=== PATIENT | male | born 1990 | race African-American/Black ===

== ENCOUNTER 2018-03-22 08:41 | Emergency (ER) | payer MEDICAID ==
[~2018-03-22] VITALS: Ht 172.7 cm; Wt 106.6 kg
[2018-03-22 10:17] VITALS: BP 130/57
[2018-03-22] MEDS ORDERED: KETOROLAC TROMETH 60MG/2ML VIAL IM ONE (10:30)
== END 2018-03-22 12:26 | disposition home or self-care (01) ==
LOC: ER 08:42
DX: J02.9 Acute pharyngitis, unspecified (principal); M25.562 Pain in left knee
CPT/HCPCS: 73562; 96372; 99283; J1885